=== PATIENT | female | born 1970 | race Two or more races ===

== ENCOUNTER 2021-06-24 05:41 | Emergency (ER) | payer BC, OTHER ==
[~2021-06-24] VITALS: Ht 157.5 cm; Wt 62.7 kg
[~2021-06-24 05:41] MED LIST: ACET325T9 PO; CIPR250T PO; IBUP200C9 PO; OXYC1TAB15 PO; PROM25TA10 PO; TAMS0.4C97 PO
[2021-06-24] MEDS ORDERED: IV NORMAL SALINE 1000ML BAG 1,000 ML IV ONE (06:15)
[2021-06-24] MEDS ORDERED: MORPHINE SULFATE 4 MG/ML INJ. IVP ONE (06:15)
[2021-06-24] MEDS ORDERED: ONDANSETRON PF 4 MG/2 ML VIAL. IVP ONE (06:15)
[2021-06-24 06:16] LABS: BASO # 0.1 x10^3/uL (0.0-0.2); BASO % 1 % (0-3); EOS % 9 % (0-3); HEMATOCRIT 41.3 % (36.0-47.0); HEMOGLOBIN 13.6 g/dL (12.0-15.5); LYMPH # 3.7 x10^3/uL (1.0-4.8); LYMPH % 35 % (24-48); MEAN CORPUSCULAR HEMOGLOBIN 29 pg (25-35); MEAN CORPUSCULAR HGB CONC 33 g/dL (31-37); MEAN CORPUSCULAR VOLUME 87 fL (79-100); MONO # 0.6 x10^3/uL (0.0-1.1); MONO % 6 % (0-9); NEUT # 5.2 x10^3/uL (1.8-7.7); NEUT % 49 % (31-73); PLATELET COUNT 362 x10^3/uL (140-400); RED BLOOD COUNT 4.72 x10^6/uL (3.50-5.40); RED CELL DISTRIBUTION WIDTH 13.1 % (11.5-14.5); WHITE BLOOD COUNT 10.6 x10^3/uL (4.0-11.0)
[2021-06-24 06:24] LABS: CALCIUM 9.1 mg/dL (8.5-10.1); CREATININE 0.7 mg/dL (0.6-1.0); GFR 89.3; POTASSIUM 3.8 mmol/L (3.5-5.1)
--- NOTE | 2021-06-24 06:24 | PHYS DOC ---
Past Medical History Additional Past Medical Histor: kidney stone Past Surgical History: Appendectomy, Other Additional Past Surgical Histo: ovarian cyst, LITHOTRIPSY Smoking Status: Never Smoker Alcohol Use: Occasionally Drug Use: None General Adult EDM: Chief Complaint: FLANK PAIN HPI: HPI: Patient is a 50 year old female who present to ER for evaluation of right flank pain started 1 hour ago. Patient said the pain was sharp stabbing, severe in nature initially but is subsided significantly now. Patient has history of kidney stone. Patient denies any cough or fever, no blood in the urine, patient denies any urinary frequency. Patient complained of nausea vomiting when the pain came. Review of Systems: Review of Systems: Constitutional: Denies fever or chills. [] Eyes: Denies change in visual acuity. [] HENT: Denies nasal congestion or sore throat. [] Respiratory: Denies cough or shortness of breath. [] Cardiovascular: Denies chest pain or edema. [] GI: Positive for right flank pain, with nausea vomiting, no diarrhea, no bloody stool : Denies dysuria. [] Musculoskeletal: Denies back pain or joint pain. [] Integument: Denies rash. [] Neurologic: Denies headache, focal weakness or sensory changes. [] Endocrine: Denies polyuria or polydipsia. [] Lymphatic: Denies swollen glands. [] Psychiatric: Denies depression or anxiety. [] Heart Score: C/O Chest Pain: N/A Risk Factors: Risk Factors: DM, Current or recent (<one month) smoker, HTN, HLP, family history of CAD, obesity. Risk Scores: Score 0 - 3: 2.5% MACE over next 6 weeks - Discharge Home Score 4 - 6: 20.3% MACE over next 6 weeks - Admit for Clinical Observation Score 7 - 10: 72.7% MACE over next 6 weeks - Early Invasive Strategies Current Medications: Current Medications Medications (Trade) Dose Ordered Sig/Juanita Start Time Stop Time Status Last Admin Dose Admin Morphine Sulfate (Morphine Sulfate) 4 mg 1X ONCE 06/24/21 06:15 06/24/21 06:16 DC 06/24/21 06:16 4 MG Ondansetron HCl (Zofran) 4 mg 1X ONCE 06/24/21 06:15 06/24/21 06:16 DC 06/24/21 06:16 4 MG Sodium Chloride 1,000 ml @ 1,000 mls/hr 1X ONCE 06/24/21 06:15 06/24/21 07:14 06/24/21 06:15 1,000 MLS/HR Allergies: Allergies: Allergies Coded Allergies Type Severity Reaction Last Updated Verified No Known Drug Allergies 06/28/15 No Physical Exam: PE: Constitutional: Well developed, well nourished, no acute distress, non-toxic appearance. [] HENT: Normocephalic, atraumatic, bilateral external ears normal, oropharynx moist, no oral exudates, nose normal. [] Eyes: PERRLA, EOMI, conjunctiva normal, no discharge. [] Neck: Normal range of motion, no tenderness, supple, no stridor. [] Cardiovascular:Heart rate regular rhythm, no murmur [] Lungs & Thorax: Bilateral breath sounds clear to auscultation [] Abdomen: Bowel sounds normal, soft, right side flank tenderness to palpation, no masses, no pulsatile masses. [] Skin: Warm, dry, no erythema, no rash. [] Back: No tenderness, RIGHT CVA tenderness. [] Extremities: No tenderness, no cyanosis, no clubbing, ROM intact, no edema. [] Neurologic: Alert and oriented X 3, normal motor function, normal sensory function, no focal deficits noted. [] Psychologic: Affect normal, judgement normal, mood normal. [] Current Patient Data: Labs: Laboratory Tests Test 06/24/21 05:45 06/24/21 05:47 06/24/21 05:57 Urine Collection Type Unknown Urine Color Yellow Urine Clarity Clear Urine pH 5.5 Urine Specific [place] 1.020 Urine Protein Negative mg/dL Urine Glucose (UA) Negative mg/dL Urine Ketones (Stick) Negative mg/dL Urine Blood Large Urine Nitrite Negative Urine Bilirubin Negative Urine Urobilinogen Dipstick 1.0 mg/dL Urine Leukocyte Esterase Negative Urine RBC >40 /HPF Urine WBC Rare /HPF Urine Squamous Epithelial Cells Few /LPF Urine Bacteria 0 /HPF Bedside Urine HCG, Qualitative Hcg negative White Blood Count 10.6 x10^3/uL Red Blood Count 4.72 x10^6/uL Hemoglobin 13.6 g/dL Hematocrit 41.3 % Mean Corpuscular Volume 87 fL Mean Corpuscular Hemoglobin 29 pg Mean Corpuscular Hemoglobin Concent 33 g/dL Red Cell Distribution Width 13.1 % Platelet Count 362 x10^3/uL Neutrophils (%) (Auto) 49 % Lymphocytes (%) (Auto) 35 % Monocytes (%) (Auto) 6 % Eosinophils (%) (Auto) 9 % Basophils (%) (Auto) 1 % Neutrophils # (Auto) 5.2 x10^3/uL Lymphocytes # (Auto) 3.7 x10^3/uL Monocytes # (Auto) 0.6 x10^3/uL Eosinophils # (Auto) 1.0 x10^3/uL Basophils # (Auto) 0.1 x10^3/uL Sodium Level 140 mmol/L Potassium Level 3.8 mmol/L Chloride Level 105 mmol/L Carbon Dioxide Level 27 mmol/L Anion Gap 8 Blood Urea Nitrogen 21 mg/dL Creatinine 0.7 mg/dL Estimated GFR (Cockcroft-Gault) 89.3 BUN/Creatinine Ratio 30 Glucose Level 115 mg/dL Calcium Level 9.1 mg/dL Total Bilirubin 0.4 mg/dL Aspartate Amino Transf (AST/SGOT) 15 U/L Alanine Aminotransferase (ALT/SGPT) 31 U/L Alkaline Phosphatase 97 U/L Total Protein 7.7 g/dL Albumin 3.6 g/dL Albumin/Globulin Ratio 0.9 Lipase 111 U/L Current Medications Medications (Trade) Dose Ordered Sig/Juanita Route PRN Reason Start Time Stop Time Status Last Admin Dose Admin Sodium Chloride 1,000 ml @ 1,000 mls/hr 1X ONCE IV 06/24/21 06:15 06/24/21 07:14 DC 06/24/21 06:15 Ondansetron HCl (Zofran) 4 mg 1X ONCE IVP 06/24/21 06:15 06/24/21 06:16 DC 06/24/21 06:16 Morphine Sulfate (Morphine Sulfate) 4 mg 1X ONCE IVP 06/24/21 06:15 06/24/21 06:16 DC 06/24/21 06:16 Ketorolac Tromethamine (Toradol 30mg Vial) 30 mg 1X ONCE IVP 06/24/21 07:30 06/24/21 07:31 DC 06/24/21 07:35 Laboratory Tests Test 06/24/21 05:47 POC Urine HCG, Qualitative Hcg negative (Negative) Vital Signs: Vital Signs Date Time Temp Pulse Resp B/P (MAP) Pulse Ox O2 Delivery O2 Flow Rate FiO2 06/24/21 06:16 16 97 06/24/21 05:45 97.6 69 132/77 (95) Room Air 97.6 EKG: EKG: [] Radiology/Procedures: Radiology/Procedures: [][facility] [address] [place] [address] IMAGING REPORT Signed PATIENT: PAULETTE REYEZ ACCOUNT: [id number] : 1970 LOCATION: ER AGE: 50 SEX: F EXAM STATUS: PRE ER ORD. PHYSICIAN: CHARLIE GRACIA DO REASON: right flank pain PROCEDURE: CT ABDOMEN PELVIS WO CONTRAST PQRS Compliance Statement: One or more of the following individualized dose reduction techniques were utilized for this examination: 1. Automated exposure control 2. Adjustment of the mA and/or kV according to patient size 3. Use of iterative reconstruction technique CT ABDOMEN+PELVIS WO Clinical Indication: Reason: right flank pain / Spl. Instructions: / History: Comparison: CT abdomen and pelvis without contrast May 30, 2015. Technique: Helical CT imaging of the abdomen and pelvis is performed without IV or oral contrast. Findings: Evaluation of solid organs and bowel is limited without oral and IV contrast, decreasing sensitivity for detection of pathology. Groundglass and reticular opacities in the bilateral lung bases may be atelectasis or scarring. Cardiac size is normal. There is an asymmetric nodular opacity in the lateral left breast measuring 1.3 x 2.3 cm. Stable tiny hypodensity in the liver near the dome, probably a cyst or hemangioma. Liver otherwise homogeneous. There is cholelithiasis. The largest gallstone measures 2.2 cm. The spleen, pancreas, adrenal glands, and abdominal aorta caliber are normal. There are at least 3 punctate nonobstructing right renal calculi. There is minimal right hydroureteronephrosis secondary to a 2 mm calculus of the distal right ureter just proximal to the ureterovesicular junction, image 183. There is no left hydronephrosis. The stomach is unremarkable. There is no small bowel obstruction. The appendix is not identified, no secondary signs of appendicitis. No colon wall thickening is identified. Mild sigmoid colon diverticulosis. No abdominal adenopathy or free fluid. There are multiple tiny mesenteric and retroperitoneal lymph nodes. The urinary bladder is normal. There is left adnexal cyst measuring up to 3.5 cm, probably ovarian in origin. The uterus is anteverted. No pelvic free fluid is seen. 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 IMPRESSION: 1. There is minimal right obstructive uropathy secondary to a 2 mm distal ureteral calculus. 2. Punctate nonobstructing right renal calculi. 3. Cholelithiasis. 4. Left adnexal cyst. 5. There is an asymmetric nodule in the lateral left breast. Recommend comparison with recent mammography. If not available recommend bilateral diagnostic mammogram and left breast ultrasound. 6. Mild sigmoid colon diverticulosis. Electronically signed by: Artem Clark MD (06/24/2021 6:58 AM) [facility] DICTATED and SIGNED BY: ARTEM CLARK MD DATE: 06/24/21 [id number] 0 Course & Med Decision Making: Course & Med Decision Making Pertinent Labs and Imaging studies reviewed. (See chart for details) Patient is a 50-year-old female who present to ER due to right flank pain, CT scan of the abdomen pelvis show a small 2 mm right distal ureter stone. Patient was given medication in the ED, she felt much better. Patient will be discharged home. There are also incidental finding of gallstones on a CT scan with was informed to the patient Becky Disclaimer: Becky Disclaimer: This electronic medical record was generated, in whole or in part, using a voice recognition dictation system. Departure Departure Impression: Primary Impression: Kidney stone on right side Disposition: 01 HOME / SELF CARE / HOMELESS Condition: IMPROVED Referrals: NO PCP (PCP) Patient Instructions: Diet for Kidney Stones, Kidney Stones Additional Instructions: Please call UROLOGY FOR FOLLOW UP IN 2 DAYS. Formerly [facility], 1928–1983 / [place], [place] [address] [place] [address] [place] [address] [place] [address] [place] [address] [facility], [address] [place] [address] Scripts Ibuprofen (IBUPROFEN) 600 Mg Tablet 600 MG PO PRN Q6HRS PRN for PAIN, #30 TAB Prov: CHARLIE GRACIA DO 06/24/21 Hydrocodone/Acetaminophen (Hydrocodone-Acetamin 5-325 mg) 1 Each Tablet 1 EACH PO Q6HRS PRN for PAIN, #15 TAB Prov: CHARLIE GRACIA DO 06/24/21 CHARLIE GRACIA DO Jun 24, 2021 06:24
[2021-06-24 06:31] LABS: ALBUMIN 3.6 g/dL (3.4-5.0); ALBUMIN/GLOBULIN RATIO 0.9 (1.0-1.7); TOTAL BILIRUBIN 0.4 mg/dL (0.2-1.0); TOTAL PROTEIN 7.7 g/dL (6.4-8.2)
[2021-06-24 07:00] LABS: BILIRUBIN,URINE NEGATIVE (NEG); CLARITY,URINE CLEAR; COLOR,URINE YELLOW; NITRITE,URINE NEGATIVE (NEG); PH,URINE 5.5 (<5.0-8.0); PROTEIN,URINE NEGATIVE (NEG-TRACE)
--- NOTE | 2021-06-24 07:00 | RAD ---
PQRS Compliance Statement: One or more of the following individualized dose reduction techniques were utilized for this examinat ion: 1. Automated exposure control 2. Adjustment of the mA and/or kV according to patient size 3. Use of iterative reconstruction technique CT ABDOMEN+PELVIS WO Clinical Indication: Reason: right flank pain / Spl. Instructions: / History: Comparison: CT abdomen and pelvis without contrast May 30, 2015. Technique: Helical CT imaging of the abdomen and pelvis is performed without IV or oral contrast. Findings: Evaluation of solid organs and bowel is limited without oral and IV contrast, decreasing sensitivity for detection of pathology. Groundglass and reticular opacities in the bilateral lung bases may be atelectasis or scarring. Cardi ac size is normal. There is an asymmetric nodular opacity in the lateral left breast measuring 1.3 x 2.3 cm. Stable tiny hypodensity in the liver near the dome, probably a cyst or hemangioma. Liver otherwise ho mogeneous. There is cholelithiasis. The largest gallstone measures 2.2 cm. The spleen, pancreas, adre nal glands, and abdominal aorta caliber are normal. There are at least 3 punctate nonobstructing right renal calculi. There is minimal right hydrouretero nephrosis secondary to a 2 mm calculus of the distal right ureter just proximal to the ureterovesicul ar junction, image 183. There is no left hydronephrosis. The stomach is unremarkable. There is no small bowel obstruction. The appendix is not identified, no secondary signs of appendicitis. No colon wall thickening is identified. Mild sigmoid colon diverticu losis. No abdominal adenopathy or free fluid. There are multiple tiny mesenteric and retroperitoneal lymph nodes. The urinary bladder is normal. There is left adnexal cyst measuring up to 3.5 cm, probably ovarian in origin. The uterus is anteverted. No pelvic free fluid is seen. 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 IMPRESSION: 1. There is minimal right obstructive uropathy secondary to a 2 mm distal ureteral calculus. 2. Punctate nonobstructing right renal calculi. 3. Cholelithiasis. 4. Left adnexal cyst. 5. There is an asymmetric nodule in the lateral left breast. Recommend comparison with recent mammog maida. If not available recommend bilateral diagnostic mammogram and left breast ultrasound. 6. Mild sigmoid colon diverticulosis. Electronically signed by: Artem Clark MD (06/24/2021 6:58 AM) [facility]
[2021-06-24 07:20] LABS: BACTERIA,URINE 0 /HPF (0-FEW); RBC,URINE >40 /HPF (0-2); WBC,URINE RARE /HPF (0-4)
[2021-06-24] MEDS ORDERED: KETOROLAC 30 MG/ML VIAL. IVP ONE (07:30)
[2021-06-24 07:48] VITALS: BP 114/60
[2021-06-24] MEDS ORDERED: HYDR-2759 PO (08:03)
[2021-06-24] MEDS ORDERED: IBUP-1007 PO (08:03)
== END 2021-06-24 08:23 | disposition home or self-care (01) ==
LOC: ER 05:41
DX: N13.2 Hydronephrosis with renal and ureteral calculous obstruction (principal); K57.30 Diverticulosis of large intestine without perforation or abscess without bleeding; K80.20 Calculus of gallbladder without cholecystitis without obstruction
CPT/HCPCS: 36415; 74176; 80053; 81001; 81025; 83690; 85025; 96361; 96374; 96375; 99285; J1885; J2270; J2405; J7030

== ENCOUNTER 2021-07-31 11:24 | Emergency (ER) | payer OTHER ==
[~2021-07-31] VITALS: Ht 157.5 cm; Wt 63.2 kg
[~2021-07-31 11:24] MED LIST changes: +HYDR-2759 PO; +IBUP-1007 PO
[2021-07-31 11:31] VITALS: BP 128/84
--- NOTE | 2021-07-31 11:48 | PHYS DOC ---
Past Medical History Additional Past Medical Histor: kidney stone Past Surgical History: No Surgical History Additional Past Surgical Histo: ovarian cyst, LITHOTRIPSY Smoking Status: Never Smoker Alcohol Use: Occasionally Drug Use: None General Adult EDM: Chief Complaint: HEADACHE HPI: HPI: Patient is a 50 year old female who presents with headache symptoms. She reports that she was worried because she had an elevated blood pressure reading while having a headache, with a systolic in the 140s. She does not normally have hypertension. Her blood pressure is noted to be in the 130 systolic at present. She admits to having previous similar headaches in the past. She denies thunderclap headache. She reports some progressive headache Lamin, and she admits that this pain today is milder than usual. The headache is predominantly on the left side of her head. She does report some mild photophobia. Denies vision loss. She denies nausea, vomiting, dizziness, vertigo. She denies numbness, tingling, motor weakness. She denies chest pain or dyspnea. She denies syncope or near syncope. She has not taken anything for the headache, because she wanted to make sure we saw that she had a headache and wanted us to check her blood pressure before she took anything. She normally takes ibuprofen for these headaches, but she has not done so today. Review of Systems: Review of Systems: Constitutional: Denies fever or chills. [] Eyes: Denies change in visual acuity, denies vision loss of hemianopsia. Reports mild photophobia. HENT: Denies nasal congestion or sore throat. [] Respiratory: Denies cough or shortness of breath. [] Cardiovascular: Denies chest pain or edema. [] GI: Denies abdominal pain, nausea, vomiting : Denies urinary symptoms. Musculoskeletal: Denies back pain or joint pain. Denies neck pain or stiffness. Integument: Denies rash. [] Neurologic: Reports headache. Denies dizziness, vertigo, numbness, tingling or motor weakness. Denies syncope. Psychiatric: Denies depression or anxiety. [] Heart Score: C/O Chest Pain: No Risk Factors: Risk Factors: DM, Current or recent (<one month) smoker, HTN, HLP, family history of CAD, obesity. Risk Scores: Score 0 - 3: 2.5% MACE over next 6 weeks - Discharge Home Score 4 - 6: 20.3% MACE over next 6 weeks - Admit for Clinical Observation Score 7 - 10: 72.7% MACE over next 6 weeks - Early Invasive Strategies Allergies: Allergies: Allergies Coded Allergies Type Severity Reaction Last Updated Verified No Known Drug Allergies 06/28/15 No Physical Exam: PE: Constitutional: Well developed, well nourished, no acute distress, non-toxic appearance. [] HENT: Normocephalic, atraumatic, oropharynx is patent and clear, mucous membranes are moist. TMs are clear bilaterally. Nares are patent without rhinorrhea or epistaxis Eyes: PERRL, EOMI, conjunctiva normal, no discharge. No nystagmus. Sclera are clear. Neck: Normal range of motion, no tenderness, supple, no stridor. Trachea is midline. No meningismus Cardiovascular:Heart rate regular rhythm, well perfused appearing Lungs & Thorax: Bilateral breath sounds clear to auscultation [] Abdomen: Diminished soft, nondistended, nontender to palpation. Skin: Warm, dry, no erythema, no rash. [] Back: No tenderness, no CVA tenderness. [] Extremities: No tenderness, no cyanosis, no clubbing, ROM intact, no edema. [] Neurologic: She is awake, alert, oriented x3. Cranial nerves II through XII grossly intact. 5 out of 5 motor strength all 4 extremities. No pronator drift, no dysmetria, no limb ataxia. Speech is clear and fluent. He is steady. Psychologic: Affect normal, judgement normal, mood normal. He is pleasant and cooperative. Current Patient Data: Vital Signs: Vital Signs Date Time Temp Pulse Resp B/P (MAP) Pulse Ox O2 Delivery O2 Flow Rate FiO2 07/31/21 11:31 97.6 82 12 128/84 (99) 98 Room Air 97.6 EKG: EKG: [] Radiology/Procedures: Radiology/Procedures: IMAGING REPORT Signed PATIENT: PAULETTE REYEZ ACCOUNT: [id number] : 1970 LOCATION: ER AGE: 50 SEX: F EXAM STATUS: PRE ER ORD. PHYSICIAN: CLINTON HOROWITZ DO REASON: headache PROCEDURE: CT HEAD WO CONTRAST EXAM: Head CT without contrast. HISTORY: Headache. TECHNIQUE: Computed tomographic images of the head were obtained without contrast. *One or more of the following individualized dose reduction techniques were utilized for this examination: 1. Automated exposure control. 2. Adjustment of the mA and/or kV according to patient size. 3. Use of iterative reconstruction technique. COMPARISON: None. FINDINGS: There is no acute or subacute extra-axial or intraparenchymal hemorrhage. There is no mass effect or midline shift. There is no hydrocephalus. The ortiz-white matter differentiation pattern is intact. The visualized portions of the orbits, paranasal sinuses and mastoid air cells are unremarkable. No suspicious calvarial lesion is seen. IMPRESSION: No acute intracranial findings. Electronically signed by: Danielle Diego MD (07/31/2021 12:31 PM) [id number] DICTATED and SIGNED BY: DANIELLE DIEGO MD DATE: 07/31/21 [id number] 0 Course & Med Decision Making: Course & Med Decision Making Pertinent Labs and Imaging studies reviewed. (See chart for details) P.o. ibuprofen is given here. She reports improvement of her headache pain. CT head is negative. Blood pressure is stable. No red flag signs or symptoms. She has a nonfocal/normal neurologic exam. She admits to having a previous history of the same headaches. No current indication for further invasive exams, imaging or admission at this time based on current clinical presentation. I do strongly encouraged her to follow-up with her primary care physician. She may take [id number] Tylenol or ibuprofen for pain. She should make sure she stays well-hydrated. Sipping caffeinated beverages may also help her pain. Strict return precautions are provided. She is comfortable to plan for discharge home. Becky Disclaimer: Becky Disclaimer: This electronic medical record was generated, in whole or in part, using a voice recognition dictation system. Departure Departure Impression: Primary Impression: Headache Disposition: 01 HOME / SELF CARE / HOMELESS Condition: STABLE Referrals: NO PCP (PCP) Patient Instructions: General Headache Without Cause, Recurrent Migraine Headache Additional Instructions: Use [id number] Tylenol and ibuprofen for pain. Make sure you stay well- hydrated, drink plenty of fluids. You may try to sip on a little bit of caffeine to help with your headaches as well. Currently your blood pressure is stable. Return to the ER for acute injury or trauma, if you develop any worsening more severe headache, chest pain, shortness of breath, temperature 100.4 or higher, weakness or any other concerns. Follow-up with your primary care physician. CLINTON HOROWITZ DO Jul 31, 2021 11:48
[2021-07-31] MEDS ORDERED: IBUPROFEN 200 MG TABLET. PO ONE (12:00)
--- NOTE | 2021-07-31 12:33 | RAD ---
EXAM: Head CT without contrast. HISTORY: Headache. TECHNIQUE: Computed tomographic images of the head were obtained without contrast. *One or more of the following individualized dose reduction techniques were utilized for this examina tion: 1. Automated exposure control. 2. Adjustment of the mA and/or kV according to patient size. 3. Use of iterative reconstruction technique. COMPARISON: None. FINDINGS: There is no acute or subacute extra-axial or intraparenchymal hemorrhage. There is no mass effect or midline shift. There is no hydrocephalus. The ortiz-white matter differentiation pattern is intact. The visualized portions of the orbits, paranasal sinuses and mastoid air cells are unremarkable. No s uspicious calvarial lesion is seen. IMPRESSION: No acute intracranial findings. Electronically signed by: Danielle Perez MD (07/31/2021 12:31 PM) [id number]
== END 2021-07-31 14:29 | disposition home or self-care (01) ==
LOC: ER 11:24
DX: R51.9 Headache, unspecified (principal); I10 Essential (primary) hypertension
CPT/HCPCS: 70450; 99284-25